=== PATIENT | male | born 1945 | race Caucasian/White ===

== ENCOUNTER 2018-04-19 08:00 | Day surgery (SDC) | payer MEDICARE ==
[~2018-04-19] VITALS: Ht 177.8 cm; Wt 94.4 kg
[~2018-04-19 08:00] MED LIST: ALBU90OI INH; ALBU90OI6 INH; AMLO5 PO; ASPI81CH PO; Aldactazide 251 EACH PO; BUDE6HFA INH; PRED5 PO
--- NOTE | 2018-04-19 11:28 | NUR ---
04/19/18 1128 Luba Wallace UPON ARRIVAL TO SDU, PT DENIED PAIN & NAUSEA. PT THEN STS HAS ABD PAIN, BUT REFUSED MEDICATION. FAMILY AT BEDSIDE, TOLERATING PO INTAKE. PAIN RE-EVALUATED, AND PT STS PAIN IS NOW 8/10. MEDICATED WITH FENTANYL 50MCG IVP PER ORDERS.
== END 2018-04-19 12:13 | disposition home or self-care (01) ==
LOC: ORSCSDS 08:00
PROVIDERS: Surgery
PROC: 0WUF0JZ Supplement Abdominal Wall with Synthetic Substitute, Open Approach (ICD-10-PCS; principal; 2018-04-19 09:15)
DX: K42.9 Umbilical hernia without obstruction or gangrene (principal); I10 Essential (primary) hypertension; J44.9 Chronic obstructive pulmonary disease, unspecified; Z99.81 Dependence on supplemental oxygen; Z87.891 Personal history of nicotine dependence; Z79.899 Other long term (current) drug therapy
CPT/HCPCS: C1781; J0330; J0690; J1720; J2250; J2405; J3010; J7120

== ENCOUNTER → 2018-05-06 | Outpatient (CLI) | payer MEDICARE ==
[~2018-05-06] MED LIST changes: +SIMV40 PO
== END ==
LOC: LAB EV 11:20 → LAB SHORT 11:20
DX: J02.9 Acute pharyngitis, unspecified (principal)
CPT/HCPCS: 87070

== ENCOUNTER 2018-05-09 14:06 | Emergency (ER) | payer MEDICARE ==
[~2018-05-09 14:06] MED LIST changes: -SIMV40 PO
[2018-05-09 14:35] LABS: BASOPHILS ABSOLUTE AUTO 0.03 K/mm3 (0.00-0.23); BASOPHILS PERCENT AUTO 0 % (0-2); EOSINOPHILS ABSOLUTE AUTO 0.03 K/mm3 (0.00-0.68); EOSINOPHILS PERCENT AUTO 0 % (0-6); Hematocrit 35.3 % (37.0-53.0); Hemoglobin 11.8 g/dL (13.5-17.5); IMMATURE GRAN ABSOLUTE AUTO 0.04 K/mm3 (0.00-0.10); IMMATURE GRAN PERCENT AUTO 1 % (0-1); LYMPHOCYTES ABSOLUTE AUTO 0.78 K/mm3 (0.84-5.20); LYMPHOCYTES PERCENT AUTO 10 % (21-46); MONOCYTES ABSOLUTE AUTO 0.73 K/mm3 (0.16-1.47); MONOCYTES PERCENT AUTO 9 % (4-13); Mean Corpuscular HGB 31.2 pg (26.0-34.0); Mean Corpuscular HGB Conc 33.4 g/dL (31.5-36.5); Mean Corpuscular Volume 93 fL (80-100); Mean Platelet Volume 11.8 fL (9.1-12.4); NEUTROPHILS ABSOLUTE AUTO 6.13 K/mm3 (1.96-9.15); NEUTROPHILS PERCENT AUTO 79 % (41-73); Platelet Count 173 K/mm3 (150-400); RDW Coefficient Variation 11.9 % (11.7-14.2); Red Blood Cell Count 3.78 M/mm3 (4.30-5.90); White Blood Cell Count 7.74 K/mm3 (4.00-11.30)
[2018-05-09 14:40] LABS: Calcium, Ionized (POC) 1.03 mmol/L (1.10-1.46); Chloride (POC) 101 mmol/L (98-108); Glucose (ISTAT POC) 107 mg/dL (70-99); Hemoglobin (POC) 11.9 g/dL (13.5-17.5); Potassium (POC) 3.7 mmol/L (3.5-5.5); Sodium (POC) 136 mmol/L (135-148); Total CO2 (POC) 24 mmol/L (21-32)
[2018-05-09 14:56] LABS: International Normalized Ratio 1.09; Prothrombin Time Results 11.5 Sec (9.7-11.5)
[2018-05-09 15:03] LABS: Alanine Aminotransfer (ALT/SGP 42 U/L (12-78); Albumin, Blood 3.4 g/dL (3.4-5.0); Albumin/Globulin Ratio 0.9 (0.8-1.8); Alk Phos 76 U/L (50-136); Anion Gap 8 mmol/L (6-16); Aspartate Aminotrans (AST/SGOT 84 U/L (12-37); Bilirubin, Total 0.5 mg/dL (0.1-1.0); Blood Urea Nitrogen 27 mg/dL (8-24); Bun/Creatinine Ratio 28.6 (12.0-20.0); CO2, Blood 25 mmol/L (21-32); Calcium, Blood 8.7 mg/dL (8.5-10.1); Chloride, Blood 103 mmol/L (98-108); Creatinine, Blood 0.94 mg/dL (0.60-1.20); Globulin, Blood 3.9 g/dL (2.2-4.0); Glomerular Filtration Rate >60 (60-); Glucose, Blood 103 mg/dL (70-99); Potassium, Blood 3.7 mmol/L (3.5-5.5); Sodium, Blood 136 mmol/L (136-145); Total Protein, Blood 7.3 g/dL (6.4-8.2)
[2018-05-09] MEDS ORDERED: SIMV40 PO (15:10)
== END 2018-05-09 14:48 | disposition short-term general hospital (02) ==
LOC: ER 14:06
PROVIDERS: Emergency Medicine
DX: I21.19 ST elevation (STEMI) myocardial infarction involving other coronary artery of inferior wall (principal); J44.9 Chronic obstructive pulmonary disease, unspecified; Z88.1 Allergy status to other antibiotic agents; Z79.899 Other long term (current) drug therapy; Z79.82 Long term (current) use of aspirin; Z79.52 Long term (current) use of systemic steroids; Z87.891 Personal history of nicotine dependence
CPT/HCPCS: 71045; 80047; 80053; 83880; 84484; 85014; 85025; 85610; 86850; 86900; 86901; 93005; 93010; 96374; 96375; 99285-25; J1644; J3010; J7030

== ENCOUNTER 2018-10-16 18:58 | Inpatient (IN) | payer MEDICARE ==
[~2018-10-16] VITALS: Ht 177.8 cm; Wt 80.3 kg
[~2018-10-16 18:58] MED LIST changes: -ALBU90OI INH; +ALBU90OI PO; +CLOP75 PO; +DOCU100 PO; +LISI5 PO; +METO25ER PO; +SIMV40 PO
[2018-10-16 19:51] LABS: BASOPHILS ABSOLUTE AUTO 0.05 K/mm3 (0.00-0.23); BASOPHILS PERCENT AUTO 0 % (0-2); EOSINOPHILS ABSOLUTE AUTO 0.47 K/mm3 (0.00-0.68); EOSINOPHILS PERCENT AUTO 4 % (0-6); Hematocrit 35.9 % (37.0-53.0); Hemoglobin 11.5 g/dL (13.5-17.5); IMMATURE GRAN ABSOLUTE AUTO 0.06 K/mm3 (0.00-0.10); IMMATURE GRAN PERCENT AUTO 1 % (0-1); LYMPHOCYTES ABSOLUTE AUTO 1.04 K/mm3 (0.84-5.20); LYMPHOCYTES PERCENT AUTO 9 % (21-46); MONOCYTES ABSOLUTE AUTO 0.81 K/mm3 (0.16-1.47); MONOCYTES PERCENT AUTO 7 % (4-13); Mean Corpuscular HGB 28.3 pg (26.0-34.0); Mean Corpuscular Volume 88 fL (80-100); Mean Platelet Volume 10.7 fL (9.1-12.4); NEUTROPHILS ABSOLUTE AUTO 9.46 K/mm3 (1.96-9.15); NEUTROPHILS PERCENT AUTO 80 % (41-73); Platelet Count 249 K/mm3 (150-400); RDW Coefficient Variation 14.8 % (11.7-14.2); RDW Standard Deviation 47.8 fL (35.1-46.3); Red Blood Cell Count 4.07 M/mm3 (4.30-5.90); White Blood Cell Count 11.89 K/mm3 (4.00-11.30)
[2018-10-16 20:17] LABS: Alanine Aminotransfer (ALT/SGP 22 U/L (12-78); Albumin, Blood 3.6 g/dL (3.4-5.0); Alk Phos 109 U/L (50-136); Anion Gap 3 mmol/L (6-16); Aspartate Aminotrans (AST/SGOT 17 U/L (12-37); Bilirubin, Total 0.4 mg/dL (0.1-1.0); Blood Urea Nitrogen 25 mg/dL (8-24); Bun/Creatinine Ratio 24.8 (12.0-20.0); CO2, Blood 26 mmol/L (21-32); Calcium, Blood 9.6 mg/dL (8.5-10.1); Chloride, Blood 104 mmol/L (98-108); Creatinine, Blood 1.01 mg/dL (0.60-1.20); Globulin, Blood 3.6 g/dL (2.2-4.0); Glomerular Filtration Rate >60 (60-); Glucose, Blood 98 mg/dL (70-99); Potassium, Blood 3.9 mmol/L (3.5-5.5); Sodium, Blood 133 mmol/L (136-145); Total Protein, Blood 7.2 g/dL (6.4-8.2)
[2018-10-16] MEDS ORDERED: ATOR10 PO (20:55)
[2018-10-16] MEDS ORDERED: LISI5 PO (20:55)
[2018-10-16] MEDS ORDERED: METO50 PO (20:55)
[2018-10-16] MEDS ORDERED: BUDE6HFA INH (20:56)
[2018-10-16] MEDS ORDERED: Aldactazide 251 EACH PO (20:56)
[2018-10-16] MEDS ORDERED: ASPI325EC PO (20:56)
[2018-10-16] MEDS ORDERED: CLOP75 PO (20:56)
[2018-10-16 22:03] LABS: Source, Urine Clean Catch
[2018-10-16 22:06] LABS: Bilirubin, Urine Neg (Neg); Blood, Urine Neg (Neg); Glucose Qualitative, Urine Neg (Neg); Ketones, Urine 2+ (Neg); Leukocyte Esterase, Urine Neg (Neg); Nitrite, Urine Neg (Neg); Protein, Urine Neg (Neg); Urobilinogen, Urine NORM (Normal)
[2018-10-16 22:07] LABS: Appearance, Urine Clear (Clear); Color, Urine Yellow (P-Yellow)
--- NOTE | 2018-10-17 03:44 | NUR ---
SHIFT SUMMARY: PT IS ALERT AND ORIENTED. PT IS CALM AND COOPERATIVE WITH CARE. PT CALLS APPROPRIATELY. PT IS A STANDBY ASSIST. PT REPORTS RLQ ABD PAIN, MEDICATING PER EMAR. PT DENIES NAUSEA, VOMITING, AND SOB. FLUIDS RUNNING ORDERED. NSR ON TELE. PT SLEPT INTERMITTENTLY THROUGHOUT THE MORNING AFTER ADMISSION. NPO ORDERED. NO ACUTE CHANGES SINCE ADMISSION. BED IN LOW POSITION, CALL LIGHT WITHIN REACH. WILL REPORT TO DAY NURSE.
[2018-10-17 04:50] LABS: BASOPHILS ABSOLUTE AUTO 0.02 K/mm3 (0.00-0.23); BASOPHILS PERCENT AUTO 0 % (0-2); EOSINOPHILS ABSOLUTE AUTO 0.09 K/mm3 (0.00-0.68); EOSINOPHILS PERCENT AUTO 1 % (0-6); Hematocrit 31.5 % (37.0-53.0); IMMATURE GRAN ABSOLUTE AUTO 0.04 K/mm3 (0.00-0.10); IMMATURE GRAN PERCENT AUTO 0 % (0-1); LYMPHOCYTES ABSOLUTE AUTO 0.79 K/mm3 (0.84-5.20); LYMPHOCYTES PERCENT AUTO 8 % (21-46); MONOCYTES ABSOLUTE AUTO 0.73 K/mm3 (0.16-1.47); MONOCYTES PERCENT AUTO 8 % (4-13); Mean Corpuscular HGB 27.5 pg (26.0-34.0); Mean Corpuscular HGB Conc 31.7 g/dL (31.5-36.5); Mean Corpuscular Volume 87 fL (80-100); Mean Platelet Volume 10.6 fL (9.1-12.4); NEUTROPHILS ABSOLUTE AUTO 7.73 K/mm3 (1.96-9.15); NEUTROPHILS PERCENT AUTO 82 % (41-73); Platelet Count 204 K/mm3 (150-400); RDW Coefficient Variation 14.7 % (11.7-14.2); Red Blood Cell Count 3.63 M/mm3 (4.30-5.90)
[2018-10-17 05:16] LABS: Anion Gap 6 mmol/L (6-16); Blood Urea Nitrogen 19 mg/dL (8-24); Bun/Creatinine Ratio 19.3 (12.0-20.0); CO2, Blood 26 mmol/L (21-32); Calcium, Blood 8.2 mg/dL (8.5-10.1); Chloride, Blood 106 mmol/L (98-108); Creatinine, Blood 0.99 mg/dL (0.60-1.20); Glomerular Filtration Rate >60 (60-); Glucose, Blood 99 mg/dL (70-99); Potassium, Blood 4.3 mmol/L (3.5-5.5); Sodium, Blood 138 mmol/L (136-145)
[2018-10-17 12:44] LABS: Albumin, Blood 2.8 g/dL (3.4-5.0); Albumin/Globulin Ratio 0.9 (0.8-1.8); Bilirubin, Direct 0.2 mg/dL (0.0-0.3); Bilirubin, Indirect 0.6 mg/dL (0.1-0.7); Bilirubin, Total 0.8 mg/dL (0.1-1.0); Globulin, Blood 3.2 g/dL (2.2-4.0); Phosphorus, Blood 2.6 mg/dL (2.5-4.9)
[2018-10-17 17:07] LABS: PCO2 Arterial 33.9 mmHg (35-45); pH Blood Arterial 7.43 (7.35-7.45)
--- NOTE | 2018-10-17 18:05 | NUR ---
SHIFT SUMMARY THIS RN HAS MEDICATED FOR RIGHT LOWER QUADRANT ABDOMINAL PAIN SEVERAL TIMES THIS SHIFT. DR. AGUILAR AND CATALINA IN TO SEE PT THIS SHIFT. PT NPO WITH IVF INFUSING PER ORDERS. PT SLEEPING A LOT OF THE SHIFT. NO PLANS FOR PROCEDURE/SURGERY AT THIS TIME. NO ACUTE CHANGES THIS SHIFT. CALL LIGHT IN REACH. WILL CONTINUE TO MONITOR AND REPORT TO ONCOMING RN.
[2018-10-18 04:36] LABS: BASOPHILS ABSOLUTE AUTO 0.02 K/mm3 (0.00-0.23); BASOPHILS PERCENT AUTO 0 % (0-2); EOSINOPHILS ABSOLUTE AUTO 0.11 K/mm3 (0.00-0.68); EOSINOPHILS PERCENT AUTO 1 % (0-6); Hematocrit 29.7 % (37.0-53.0); Hemoglobin 9.6 g/dL (13.5-17.5); IMMATURE GRAN ABSOLUTE AUTO 0.05 K/mm3 (0.00-0.10); IMMATURE GRAN PERCENT AUTO 1 % (0-1); LYMPHOCYTES ABSOLUTE AUTO 0.83 K/mm3 (0.84-5.20); LYMPHOCYTES PERCENT AUTO 10 % (21-46); MONOCYTES ABSOLUTE AUTO 0.58 K/mm3 (0.16-1.47); MONOCYTES PERCENT AUTO 7 % (4-13); Mean Corpuscular HGB 27.6 pg (26.0-34.0); Mean Corpuscular HGB Conc 32.3 g/dL (31.5-36.5); Mean Corpuscular Volume 85 fL (80-100); Mean Platelet Volume 11.2 fL (9.1-12.4); NEUTROPHILS ABSOLUTE AUTO 6.54 K/mm3 (1.96-9.15); NEUTROPHILS PERCENT AUTO 81 % (41-73); Platelet Count 185 K/mm3 (150-400); RDW Coefficient Variation 14.7 % (11.7-14.2); RDW Standard Deviation 45.6 fL (35.1-46.3); Red Blood Cell Count 3.48 M/mm3 (4.30-5.90); White Blood Cell Count 8.13 K/mm3 (4.00-11.30)
[2018-10-18 04:54] LABS: Alanine Aminotransfer (ALT/SGP 15 U/L (12-78); Albumin, Blood 2.7 g/dL (3.4-5.0); Albumin/Globulin Ratio 0.8 (0.8-1.8); Alk Phos 73 U/L (50-136); Anion Gap 6 mmol/L (6-16); Aspartate Aminotrans (AST/SGOT 5 U/L (12-37); Bilirubin, Total 0.8 mg/dL (0.1-1.0); Blood Urea Nitrogen 14 mg/dL (8-24); Bun/Creatinine Ratio 14.3 (12.0-20.0); CO2, Blood 26 mmol/L (21-32); Calcium, Blood 8.2 mg/dL (8.5-10.1); Chloride, Blood 106 mmol/L (98-108); Creatinine, Blood 0.98 mg/dL (0.60-1.20); Globulin, Blood 3.2 g/dL (2.2-4.0); Glomerular Filtration Rate >60 (60-); Glucose, Blood 105 mg/dL (70-99); Potassium, Blood 3.7 mmol/L (3.5-5.5); Sodium, Blood 138 mmol/L (136-145); Total Protein, Blood 5.9 g/dL (6.4-8.2)
--- NOTE | 2018-10-18 05:07 | NUR ---
SHIFT SUMMARY: PT IS ALERT AND ORIENTED. PT IS CALM AND COOPERATIVE WITH CARE. PT CALLS APPROPRIATELY. PT IS A STANDBY ASSIST, USING THE URINAL INDEPENDENTLY IN BED. PT COTINUES TO BE NPO, FLUIDS RUNNING ORDERED. PT DOES NOT REPORT ANY PAIN THIS SHIFT, DENIES NAUSEA, VOMITING, AND SOB. PT SLEPT MUCH OF THE NIGHT. GI AND SURGERY CONSULTED. NO ACUTE CHANGES OR COMPLICATIONS. BED IN LOW POSITION, CALL LIGHT WITHIN REACH. WILL REPORT TO DAY NURSE.
--- NOTE | 2018-10-18 17:21 | NUR ---
10/18/18 1721 Wilton Arango PT ON SCHEDULED ZOSYN IV AND WILL CON'T TO RECIEVE SCHEDULED
[2018-10-19 04:02] LABS: BASOPHILS ABSOLUTE AUTO 0.01 K/mm3 (0.00-0.23); BASOPHILS PERCENT AUTO 0 % (0-2); EOSINOPHILS PERCENT AUTO 0 % (0-6); Hematocrit 27.9 % (37.0-53.0); Hemoglobin 8.8 g/dL (13.5-17.5); IMMATURE GRAN ABSOLUTE AUTO 0.06 K/mm3 (0.00-0.10); IMMATURE GRAN PERCENT AUTO 1 % (0-1); LYMPHOCYTES ABSOLUTE AUTO 0.28 K/mm3 (0.84-5.20); LYMPHOCYTES PERCENT AUTO 3 % (21-46); MONOCYTES ABSOLUTE AUTO 0.29 K/mm3 (0.16-1.47); MONOCYTES PERCENT AUTO 3 % (4-13); Mean Corpuscular HGB 27.5 pg (26.0-34.0); Mean Corpuscular HGB Conc 31.5 g/dL (31.5-36.5); Mean Corpuscular Volume 87 fL (80-100); NEUTROPHILS ABSOLUTE AUTO 8.14 K/mm3 (1.96-9.15); NEUTROPHILS PERCENT AUTO 93 % (41-73); Platelet Count 191 K/mm3 (150-400); RDW Coefficient Variation 14.7 % (11.7-14.2); RDW Standard Deviation 47.1 fL (35.1-46.3); White Blood Cell Count 8.78 K/mm3 (4.00-11.30)
[2018-10-19 04:26] LABS: Percent Saturation 5.1 % (20.0-50.0)
[2018-10-19 04:27] LABS: Alanine Aminotransfer (ALT/SGP 13 U/L (12-78); Albumin, Blood 2.4 g/dL (3.4-5.0); Albumin/Globulin Ratio 0.7 (0.8-1.8); Alk Phos 66 U/L (50-136); Anion Gap 10 mmol/L (6-16); Aspartate Aminotrans (AST/SGOT 13 U/L (12-37); Bilirubin, Total 0.5 mg/dL (0.1-1.0); Blood Urea Nitrogen 16 mg/dL (8-24); Bun/Creatinine Ratio 15.7 (12.0-20.0); CO2, Blood 22 mmol/L (21-32); Calcium, Blood 8.2 mg/dL (8.5-10.1); Chloride, Blood 106 mmol/L (98-108); Creatinine, Blood 1.02 mg/dL (0.60-1.20); Globulin, Blood 3.5 g/dL (2.2-4.0); Glomerular Filtration Rate >60 (60-); Glucose, Blood 132 mg/dL (70-99); Phosphorus, Blood 3.8 mg/dL (2.5-4.9); Potassium, Blood 4.6 mmol/L (3.5-5.5); Sodium, Blood 138 mmol/L (136-145); Total Protein, Blood 5.9 g/dL (6.4-8.2)
--- NOTE | 2018-10-19 06:11 | NUR ---
SHIFT SUMMARY PT ARRIVED TO UNIT FROM PACU D/T LOW O2 SATS POST OP. PT A0X4 UPON ARRIVAL. REPORTS PAIN TO ABD. PREVINA DRESSING TO INCISION. C/D/I. RESP EVEN UNLABORED ON 4L UPON ARRIVAL, PT HAS SINCE BEEN TITRATED DOWN TO HOME 2L AT [facility]. SATS >95% TOLERATING WELL. PT HAS BEEN MEDICATED T/O NIGHT FOR PAIN TO ABD, PT SSIST IN TURN TO R SIDE TO REDUCE PRESSURE TO BACK, PT TOLERATED WELL. DENIES CP, BP HAS BEEN LOW AND NITRO PASTE WAS HELD D/T CLINICAL JUDGMENT AT THE TIME. DENIES OTHER NEEDS. CALL LIGHT IN REACH.
--- NOTE | 2018-10-19 14:29 | NUR ---
REPORTS GIVEN TO ALEX CALLAWAY ASSUMING CARE OF PT. PT TRANSFERED TO ROOM 224. PT A&Ox4, CALM AND COOPERATIVE WITH CARE. FORGETFUL AT TIMES. PT RESTING IN BED DURING SHIFT. PT REPORTS RLQ PAIN, MEDICATED x1 WITH TORADOL WITH POSITIVE RESULTS. PT ON 2L O2 VIA NC THIS AM, TITRATED SPO2 >94% ON RA. PT WEARS 2L O2 VIA NC AT BASELINE AT NIGHT. JONES IN PLACE, PATENT AND DRAINING, REMOVED PER ORDERS. PT HAS PREVENA WOUND DRESSING OVER SURGICAL SIGHT, DRESSING C/D/I, SANGINOUS DRAINING IN TUBING. VSS. NO OTHER ACUTE CHANGES NOTED.
--- NOTE | 2018-10-19 16:18 | NUR ---
TRANSFER TO SURGICAL FLOOR PATIENT TO SURGICAL FLOOR FROM PCU AT 1430 TODAY. PT IS A&O X4, VSS, ON RA , ABLE TO AMBULATE WITH WALKER AND STAND BY, LCA, HR REGULAR BUT DISTANT SOUNDING, BTX4, REPORTS PASSING GAS AND BELCHING. PREVENA TO WOUND DEPRESSED, SS DRAINAGE NOTED IN TUBING. REPORTS PAIN 2/10 STATING TOLERABLE LEVEL AT THIS TIME.
--- NOTE | 2018-10-19 16:27 | NUR ---
DR. CRUZ IN TO SEE PT NO NEW ORDERS AT THIS.
--- NOTE | 2018-10-19 17:35 | NUR ---
PAIN CONTROL PT RATED PAIN AT 4/10 AFTER 1 PAIN PILL; WHICH IS NOT IMPROVING HIS PAIN. HOWEVER, HE DECLINED ANY FURTHER PAIN MANAGEMENT TREATMENTS OR MEDICATIONS AT THIS TIME.
--- NOTE | 2018-10-19 19:17 | NUR ---
SHIFT SUMMARY PT TO UNIT FROM PCU THIS AFTERNOON. IS STABLE, AMBULATES WITH 1 PERSON STAND BY ASSIT, A&O. PT REPORTS PAIN TOLERABLE AT THIS TIME RATING 5/10. HAS NOT VOIDED SINCE ARRIVAL TO UNIT, PERFORMED BLADDER SCAN WHICH SHOWED 9MLS OF URINE. PT RESTING IN BED WITH CALL LIGHT WITHIN REACH.
--- NOTE | 2018-10-20 00:48 | NUR ---
PT WITH EMESIS AND VERB ZOFRAN INEFFECTIVE FOR NAUSEA. PT ALSO WITH BLADDER SCAN OF 412 ML AND INABILITY TO VOID.CALL OUT TO DR GONZALES.WAITING RETURN CALL.
[2018-10-20 05:08] LABS: BASOPHILS ABSOLUTE AUTO 0.02 K/mm3 (0.00-0.23); BASOPHILS PERCENT AUTO 0 % (0-2); EOSINOPHILS ABSOLUTE AUTO 0.01 K/mm3 (0.00-0.68); EOSINOPHILS PERCENT AUTO 0 % (0-6); Hematocrit 27.9 % (37.0-53.0); Hemoglobin 9.2 g/dL (13.5-17.5); IMMATURE GRAN ABSOLUTE AUTO 0.05 K/mm3 (0.00-0.10); IMMATURE GRAN PERCENT AUTO 1 % (0-1); LYMPHOCYTES ABSOLUTE AUTO 0.75 K/mm3 (0.84-5.20); LYMPHOCYTES PERCENT AUTO 7 % (21-46); MONOCYTES ABSOLUTE AUTO 0.81 K/mm3 (0.16-1.47); MONOCYTES PERCENT AUTO 8 % (4-13); Mean Corpuscular HGB 28.2 pg (26.0-34.0); Mean Corpuscular Volume 86 fL (80-100); NEUTROPHILS ABSOLUTE AUTO 8.49 K/mm3 (1.96-9.15); NEUTROPHILS PERCENT AUTO 84 % (41-73); Platelet Count 281 K/mm3 (150-400); RDW Coefficient Variation 14.6 % (11.7-14.2); RDW Standard Deviation 46.5 fL (35.1-46.3); Red Blood Cell Count 3.26 M/mm3 (4.30-5.90); White Blood Cell Count 10.13 K/mm3 (4.00-11.30)
[2018-10-20 05:27] LABS: Alanine Aminotransfer (ALT/SGP 18 U/L (12-78); Albumin, Blood 2.6 g/dL (3.4-5.0); Albumin/Globulin Ratio 0.7 (0.8-1.8); Alk Phos 64 U/L (50-136); Anion Gap 7 mmol/L (6-16); Aspartate Aminotrans (AST/SGOT 12 U/L (12-37); Bilirubin, Total 0.4 mg/dL (0.1-1.0); Blood Urea Nitrogen 17 mg/dL (8-24); Bun/Creatinine Ratio 18.6 (12.0-20.0); CO2, Blood 28 mmol/L (21-32); Calcium, Blood 8.5 mg/dL (8.5-10.1); Chloride, Blood 103 mmol/L (98-108); Creatinine, Blood 0.91 mg/dL (0.60-1.20); Globulin, Blood 3.6 g/dL (2.2-4.0); Glomerular Filtration Rate >60 (60-); Glucose, Blood 112 mg/dL (70-99); Potassium, Blood 3.6 mmol/L (3.5-5.5); Sodium, Blood 138 mmol/L (136-145); Total Protein, Blood 6.2 g/dL (6.4-8.2)
--- NOTE | 2018-10-20 17:57 | NUR ---
SUMMARY: PT IS POD2 ILEOCOLIC ANESTOMOSIS. NO ACUTE CHANGE TODAY. PT IS A/O, VSS. SURGICAL SITE WNL, SMALL AMT RED DRAINAGE FROM PRAVENA. PT CONTINUED TO HAVE INTERMITTANT NAUSEA TODAY, 600 EMESIS. DENIED NEED FOR NAUSEA MED. PT UP TO VOID X2, ENCOURAGING MOBILITY ALTHOUGH PT HAS SLEPT MOST OF THE DAY. PT IS VOIDING, BLADDER SCANS WNL. WILL CTM AND REPORT TO NOC RN
--- NOTE | 2018-10-21 04:36 | NUR ---
SUMMARY PT REPORTS NAUSEA RESOLVED.TOLERATING SMALL AMNTS LIQ.NO FLATUS TONIGHT. VOIDING WITHOUT DIFF THIS SHIFT.
--- NOTE | 2018-10-21 17:20 | NUR ---
SHIFT SUMMARY NO ACUTE CHANGES THIS SHIFT. VSS. PT REPORTS HE IS FEELING A LOT BETTER THAN HE WAS THIS MORNING AFTER HE HAD X1 EMESIS. ABD IS STILL SEVERELY DISTENDED BUT SOFT TO THE TOUCH. HYPOACTIVE BTS X4 QUAD. PT REPORTS PASSING GAS T/O THE DAY. HE REPORTS MORE GAS THAN HE WAS THIS MORNING. DENIES N/V AND IS DEBBIE FULL LIQ DIET. PT IS INDEPENDENTLY AMBULATING HALLWAY AND HAS BEEN UP IN HIS CHAIR FOR MOST OF THE DAY. USING URINAL TO VOID. PT USES CALL LIGHT APPROPRIATELY.
--- NOTE | 2018-10-22 07:18 | NUR ---
SUMMARY: POD 4 SBO F/U BY DR. ARNOLD. VSS, AFEBRILE. PT HAD 2 LOOSE OMARI RED STOOLS AND PASSING GAS THIS SHIFT; VOIDING CLEAR FERCHO URINE. 1 GREEN EMESIS OF 350 ML EARLY IN SHIFT RELEIVED WITH IV REGLAN AND 12.5 MG IV PHENERGAN. PT HAS HICCUPS ENTIRETY OF SHIFT WHILE IN BED THAT APPEARED RELEIVED WHILE OUT OF BED. ONLY PO INTAKE WAS ICE CHIPS. ABD APPEARS SEVERLY DISTENDED AROUND TO FLANKS WITH HYPOACTIVE BOWEL TONES. ENCOURAGE OOB ACTIVITY TODAY.
[2018-10-22 11:31] LABS: Adenovirus F 40/41 Not Detected (NOT DETECT); Astrovirus Not Detected (NOT DETECT); Campylobacter Sp Not Detected (NOT DETECT); Cryptosporidium Not Detected (NOT DETECT); Cyclospora Cayetanensis Not Detected (NOT DETECT); E. Coli O157 Not Detected (NOT DETECT); Entamoeba Histolytica Not Detected (NOT DETECT); Enteroaggregative E. coli-EAEC Not Detected (NOT DETECT); Enteropathogenic E. coli-EPEC Not Detected (NOT DETECT); Enterotoxigenic E. coli-ETEC Not Detected (NOT DETECT); Giardia Lamblia Not Detected (NOT DETECT); Norovirus GI/GII Not Detected (NOT DETECT); Plesiomonas Shigelloides Not Detected (NOT DETECT); Rotavirus A Not Detected (NOT DETECT); Salmonella Sp Not Detected (NOT DETECT); Sapovirus Not Detected (NOT DETECT); Shiga Toxin-prod E. coli-STEC Not Detected (NOT DETECT); Shigella/Enteroin E. coli-EIEC Not Detected (NOT DETECT); Vibrio Cholerae Not Detected (NOT DETECT); Vibrio Sp Not Detected (NOT DETECT); Yersinia Enterocolitica Not Detected (NOT DETECT)
--- NOTE | 2018-10-22 14:44 | NUR ---
DR. Romulo ZALDIVAR NOTIFIED OF LIQUID MAROON COLORED STOOLS. NEW ORDER FOR [facility] LABS PLACED AT THIS TIME.
[2018-10-22 15:16] LABS: BASOPHILS ABSOLUTE AUTO 0.03 K/mm3 (0.00-0.23); BASOPHILS PERCENT AUTO 0 % (0-2); EOSINOPHILS ABSOLUTE AUTO 0.02 K/mm3 (0.00-0.68); EOSINOPHILS PERCENT AUTO 0 % (0-6); Hematocrit 27.2 % (37.0-53.0); Hemoglobin 8.9 g/dL (13.5-17.5); IMMATURE GRAN ABSOLUTE AUTO 0.09 K/mm3 (0.00-0.10); IMMATURE GRAN PERCENT AUTO 1 % (0-1); LYMPHOCYTES ABSOLUTE AUTO 0.47 K/mm3 (0.84-5.20); LYMPHOCYTES PERCENT AUTO 3 % (21-46); MONOCYTES ABSOLUTE AUTO 1.02 K/mm3 (0.16-1.47); MONOCYTES PERCENT AUTO 7 % (4-13); Mean Corpuscular HGB 28.6 pg (26.0-34.0); Mean Corpuscular HGB Conc 32.7 g/dL (31.5-36.5); Mean Corpuscular Volume 88 fL (80-100); Mean Platelet Volume 10.5 fL (9.1-12.4); NEUTROPHILS ABSOLUTE AUTO 13.64 K/mm3 (1.96-9.15); NEUTROPHILS PERCENT AUTO 89 % (41-73); Platelet Count 285 K/mm3 (150-400); RDW Coefficient Variation 14.6 % (11.7-14.2); RDW Standard Deviation 47.1 fL (35.1-46.3); Red Blood Cell Count 3.11 M/mm3 (4.30-5.90); White Blood Cell Count 15.27 K/mm3 (4.00-11.30)
--- NOTE | 2018-10-22 16:33 | NUR ---
SHIFT SUMMARY PT ABDOMEN CONT TO BE DISTENDED BUT IS SOFT TO THE TOUCH AND NONTENDER. PT REPORTS PASSING MINIMAL FLATUS BUT HAS HAD X2 LIQ MAROON STOOLS IN WHICH DR. ZALDIVAR AND DR. ARNOLD ARE AWARE OF. PT HAD X1 EMESIS THIS MORNING AND DIET REGRESSED TO CLEAR LIQS. PREVENA WOUND VAC IN PLACE AND DRESSING CDI. PT UP IN CHAIR AND AMBULATING HALLWAY INDEPENDENTLY. NEW ORDER FOR CLINIMIX IN PLACE AND WILL BE STARTED PER ORDERS. VSS. PT USES CALL LIGHT APPROPRIATELY.
[2018-10-23 03:36] LABS: BASOPHILS ABSOLUTE AUTO 0.04 K/mm3 (0.00-0.23); BASOPHILS PERCENT AUTO 0 % (0-2); EOSINOPHILS ABSOLUTE AUTO 0.17 K/mm3 (0.00-0.68); EOSINOPHILS PERCENT AUTO 1 % (0-6); Hematocrit 24.6 % (37.0-53.0); Hemoglobin 7.8 g/dL (13.5-17.5); IMMATURE GRAN ABSOLUTE AUTO 0.11 K/mm3 (0.00-0.10); IMMATURE GRAN PERCENT AUTO 1 % (0-1); LYMPHOCYTES ABSOLUTE AUTO 0.57 K/mm3 (0.84-5.20); LYMPHOCYTES PERCENT AUTO 4 % (21-46); MONOCYTES ABSOLUTE AUTO 0.99 K/mm3 (0.16-1.47); MONOCYTES PERCENT AUTO 8 % (4-13); Mean Corpuscular HGB 27.5 pg (26.0-34.0); Mean Corpuscular HGB Conc 31.7 g/dL (31.5-36.5); Mean Corpuscular Volume 87 fL (80-100); NEUTROPHILS ABSOLUTE AUTO 11.03 K/mm3 (1.96-9.15); NEUTROPHILS PERCENT AUTO 85 % (41-73); Platelet Count 232 K/mm3 (150-400); RDW Coefficient Variation 14.6 % (11.7-14.2); RDW Standard Deviation 46.2 fL (35.1-46.3); Red Blood Cell Count 2.84 M/mm3 (4.30-5.90); White Blood Cell Count 12.91 K/mm3 (4.00-11.30)
[2018-10-23 03:53] LABS: Anion Gap 8 mmol/L (6-16); Blood Urea Nitrogen 41 mg/dL (8-24); Bun/Creatinine Ratio 43.2 (12.0-20.0); CO2, Blood 25 mmol/L (21-32); Calcium, Blood 8.3 mg/dL (8.5-10.1); Chloride, Blood 107 mmol/L (98-108); Creatinine, Blood 0.95 mg/dL (0.60-1.20); Glomerular Filtration Rate >60 (60-); Glucose, Blood 137 mg/dL (70-99); Potassium, Blood 3.5 mmol/L (3.5-5.5); Sodium, Blood 140 mmol/L (136-145)
--- NOTE | 2018-10-23 09:35 | NUR ---
DR. ZALDIVAR NOTIFIED OF DECREASED H&H OF 7.8 AND 24.6. ORDER FOR 1 UNIT OF PRBC. ALSO NOTIFIED PT ON ASPIRIN, PLAVIX, AND LOVENOX; HELD PLAVIX, DC'D LOVENOX AND CHANGED ASPIRIN ORDER PER DR. ZALDIVAR. PT ASYMPTOMATIC OF LOW H&H. WILL CONTINUE TO MONITOR.
--- NOTE | 2018-10-23 11:45 | NUR ---
1 UNIT PRBC INFUSING STARTING AT 1130. 15 MINUTE CHECK VSS. TEMP ELEVATED. PT REPORTS NO ITCHING, NO SIGNS OF ADVERSE REACTION SEEN. PT SITTING UP IN BED. WILL CONTINUE TO MONITOR.
--- NOTE | 2018-10-23 14:59 | NUR ---
1 UNIT PRBC DONE INFUSING. LUNG SOUNDS CLEAR. PT UP IN BED. NO COMPLAINTS AT THIS TIME. NO ITCHING REPORTED. NO REDNESS SEEN.
--- NOTE | 2018-10-23 17:34 | NUR ---
SHIFT SUMMARY POD 5 EX LAP WITH ILEOCECOSTOMY AND ILEOCOLIC ANASTOMOSIS. PT ALERT AND ORIENTED WITH NO COMPLAINTS OF PAIN. PT WITH LOW GRADE FEVER DURING SHIFT MEDICATED WITH TORODOL AND TYLENOL FOR FEVER. HGB OF 7.8 THIS AM. I UNIT PRBC INFUSED PER DR. ZALDIVAR. LUNG SOUNDS CLEAR DURING INFUSION, NO SIGNS OF ALLERGIC REACTION. PT UP TO BATHROOM WITH 1 ASSIST DURING SHIFT. ONE LOOSE BM DURING SHIFT. CLINIMIX INFUSING 75ML/HR.
--- NOTE | 2018-10-23 19:02 | NUR ---
PT HAD 500ML EMESIS OUT. PHENERGAN GIVEN FOR NAUSEA AND VOMITING. WILL CONTINUE TO MONITOR. REPORT GIVEN TO ONCOMING SHIFT.
--- NOTE | 2018-10-23 20:30 | NUR ---
GIVEN REGLAN 10MG IV PER MD ORDERS FOR N/V. WILL CONTINUE TO MONITOR.
--- NOTE | 2018-10-23 22:00 | NUR ---
ASSITED TO BATHROOM AND BACK. 400ML THICKENED LIQUID BROWN BM NOTED IN SPECIMEN [place]. 80ML SPECIMEN SENT TO LAB FOR TESTING PER MD ORDERS. 25MCG SENT GIVEN FOR REPORT RKQ PAIN OF 8/10. SAFETY MEASURES IN PLACE. WILL CONTINUE TO MONITOR.
--- NOTE | 2018-10-23 23:30 | NUR ---
MEDICATED WITH NORCO 5MG X2 TABS GIVEN FOR C/O PAIN 09/21. STATES PREVIOUS PAIN MED DID NOT RELIEVE PAIN. WILL CONTINUE TO MONITOR.
--- NOTE | 2018-10-24 00:15 | NUR ---
C/O ABD CRAMPING, ASSISTED TO COMMODE IN BATHROOM. CONTINUES TO HAVE RED TINGED LIQUID BROWN STOOL IN SPECIMEN [place].
--- NOTE | 2018-10-24 00:30 | NUR ---
C/O PAIN OF 10/22 TO RLQ, STATES THAT IT WAS NOT RELEIVED WITH PREVIOUS DOSES OF PAIN MEDS. 50MCG FENT GIVEN IVP, WILL CONTINUE TO MONITOR.
[2018-10-24 03:50] LABS: Stool Occult Bld Immuno 1 Positive (NEGATIVE)
[2018-10-24 05:02] LABS: Hematocrit 30.1 % (37.0-53.0); Hemoglobin 9.7 g/dL (13.5-17.5); Mean Corpuscular HGB 28.1 pg (26.0-34.0); Mean Corpuscular HGB Conc 32.2 g/dL (31.5-36.5); Mean Corpuscular Volume 87 fL (80-100); Mean Platelet Volume 11.6 fL (9.1-12.4); Platelet Count 348 K/mm3 (150-400); RDW Coefficient Variation 15.1 % (11.7-14.2); RDW Standard Deviation 48.1 fL (35.1-46.3); Red Blood Cell Count 3.45 M/mm3 (4.30-5.90); White Blood Cell Count 11.42 K/mm3 (4.00-11.30)
[2018-10-24 06:06] LABS: Albumin, Blood 2.6 g/dL (3.4-5.0); Anion Gap 13 mmol/L (6-16); Blood Urea Nitrogen 52 mg/dL (8-24); Bun/Creatinine Ratio 43.7 (12.0-20.0); CO2, Blood 22 mmol/L (21-32); Calcium, Blood 8.4 mg/dL (8.5-10.1); Chloride, Blood 103 mmol/L (98-108); Creatinine, Blood 1.19 mg/dL (0.60-1.20); Glomerular Filtration Rate >60 (60-); Glucose, Blood 176 mg/dL (70-99); Phosphorus, Blood 4.5 mg/dL (2.5-4.9); Potassium, Blood 3.5 mmol/L (3.5-5.5); Sodium, Blood 138 mmol/L (136-145)
--- NOTE | 2018-10-24 06:30 | NUR ---
SHIFT SUMMARY LYING IN SEMI FOWERS WITH EYES CLOSED. CONTINUES TO HAVE GI BLEEDING EVIDENCED IN STOOLS, HAS HAD BM X3 THIS SHIFT. EACH PROGRESSIVELY MORE LIQUID AND BLOODY. H&H HAS REMAINED STABLE PER LABS THIS AM AND PT IS ASYMPOMATIC AT THIS TIME. PAIN IS NOW MANAAGED, BUT WAS DIFFICULT WHEN BM'S WERE OCCURING. ABD DISTENTION HAS RESOLVED. DENIES PAIN, DISCOMFORT, OR FURTHER NEEDS AT THIS TIME. WILL GIVE HAND OFF TO ONCOMING SHIFT USING SBAR.
--- NOTE | 2018-10-24 08:38 | NUR ---
UPON MORINING ASSESSMENT PT APPEARS PALE AND DROWSY. HE AWAKENS TO ANSWER QUESTIONS AND RESPONDS APPROPRIATELY, PT IS ORIENTED. HE REPORTS FEELING SHORT OF BREATH, LUNG SOUNDS DIM T/O. PT'S ABD IS DISTENDED AND HE HAS HAD NAUSEA AND VOMITING. EMESIS IS GREEN. L ARM REMAINS SWOLLEN WITHOUT IMPROVEMENT FROM YESTERDAY. BP LOW WITH INCREASING HR. DR. ZALDIVAR NOTIFIED OF CHANGES IN PATIENTS CONDITION. AWAITING DR. ZALDIVAR TO SEE THE PATIENT. WILL CONTINUE TO MONITOR AND REPORT CHANGES.
--- NOTE | 2018-10-24 09:51 | NUR ---
NG TUBE 14FR NG TUBE PLACED. PT TOLERATED WELL. NO IMMEDIATE RETURN. PLACEMENT CHECKED, COULD HEAR AIR IN STOMACH WHEN TUBE WAS FLUSHED WITH AIR. WILL GET XRAY TO CONFIRM PLACEMENT.
[2018-10-24 10:04] LABS: Mean Corpuscular HGB 28.2 pg (26.0-34.0); Mean Corpuscular HGB Conc 32.1 g/dL (31.5-36.5); Mean Corpuscular Volume 88 fL (80-100); Mean Platelet Volume 11.6 fL (9.1-12.4); Platelet Count 302 K/mm3 (150-400); RDW Coefficient Variation 14.8 % (11.7-14.2); RDW Standard Deviation 47.9 fL (35.1-46.3); Red Blood Cell Count 3.19 M/mm3 (4.30-5.90)
--- NOTE | 2018-10-24 10:25 | NUR ---
PT'S NOTIFIED OF CHANGE IN THE PATIENTS CONDITION. WILL CONTINUE TO MONITOR AND UPDATE NEEDED.
[2018-10-24 10:26] LABS: BAND PERCENT MAN 18 % (0-8); BASOPHILS PERCENT MAN 0 % (0-2); EOSINOPHILS ABSOLUTE MAN 0.22 K/mm3 (0.00-0.68); EOSINOPHILS PERCENT MAN 2 % (0-6); LYMPHOCYTES % ATYPICAL MANUAL 1 % (0-0); LYMPHOCYTES ABSOLUTE MAN 0.45 K/mm3 (0.84-5.20); LYMPHOCYTES PERCENT MAN 3 % (21-46); MONOCYTES ABSOLUTE MAN 1.59 K/mm3 (0.16-1.47); MONOCYTES PERCENT MAN 14 % (4-13); NEUTROPHILS ABSOLUTE MAN 9.12 K/mm3 (1.96-9.15); SEG NEUTROPHILS PERCENT MAN 62 % (41-73); TOTAL CELLS COUNTED 100
[2018-10-24 10:29] LABS: Albumin, Blood 2.5 g/dL (3.4-5.0); Albumin/Globulin Ratio 0.7 (0.8-1.8); Bilirubin, Total 0.5 mg/dL (0.1-1.0); Bun/Creatinine Ratio 37.3 (12.0-20.0); Calcium, Blood 8.1 mg/dL (8.5-10.1); Creatinine, Blood 1.58 mg/dL (0.60-1.20); Globulin, Blood 3.6 g/dL (2.2-4.0); Potassium, Blood 3.3 mmol/L (3.5-5.5); Total Protein, Blood 6.1 g/dL (6.4-8.2)
[2018-10-24 11:44] LABS: Source, Urine Catheter
[2018-10-24 11:48] LABS: Bilirubin, Urine Neg (Neg); Blood, Urine 1+ (Neg); Glucose Qualitative, Urine Neg (Neg); Ketones, Urine 1+ (Neg); Leukocyte Esterase, Urine 1+ (Neg); Nitrite, Urine Neg (Neg); Protein, Urine 2+ (Neg); Urobilinogen, Urine NORM (Normal)
--- NOTE | 2018-10-24 11:55 | NUR ---
TRANSFER REPORT CALLED TO JESUS IN ICU. PT TRANSPORTED TO ICU IN HIS BED. HE REMAINS ON 15L NON-REBREATHER. SBP REMAINS IN THE 80'S. PT IS DROWSY BUT AWAKENS TO QUESTIONS AND ANSWERES APPROPRIATELY. PT'S MIRNA NOTIFIED OF TRANFER. WILL CONTINUE TO MONITOR.
[2018-10-24 12:06] LABS: Appearance, Urine Clear (Clear); Color, Urine Yellow (P-Yellow)
[2018-10-24 12:09] LABS: Bacteria Many /hpf; Squamous Epithelial Cells Rare /hpf (Few)
--- NOTE | 2018-10-24 12:48 | NUR ---
PT TRANSFERED TO ICU 9 VIA BED AT APPROX 1150. PERSONAL BELONGINGS AND MEDS SENT WITH PATIENT.
[2018-10-24 13:00] LABS: Stool Occult Blood Guaiac 1 Pos (Neg)
--- NOTE | 2018-10-24 13:23 | NUR ---
TRANSFER TO ICU / DR TURNER: REPORT RECEIVED FROM RAMESH Sebastian RN. PT ARRIVED TO ICU-09 AT APPROX 1155. ON ARRIVAL TO UNIT, PT IS DROWSY BUT AWAKE. 15L O2 IN PLACE VIA NRB, O2 SATS 86-91%. LS ARE DIM T/O W/ SLIGHT EXP WHEEZE NOTED IN UPPER LOBES. MONITOR SHOWS ST, HR 110s. HYPOTENSION PERSISTANT, BUT IMPROVED SLIGHTLY, SBP 90s. MIDLINE INCISION WNL, WOUND VAC INTACT/ PATENT. ABD TENDER TO PALPATION IN RLQ, BT ARE BARELY AUDIBLE TO RLQ. NGT TO LIS, PRODUCING MOD AMNTS OF GREEN LIQUID, APPROX 100 ML OUTPUT AT THIS TIME. JONES PATENT/ DRAINING DARK YELLOW URINE. SKIN OVERALL CDI. DR TURNER HAS NOW BEEN CONSULTED. REPEAT CXR COMPLETED. HEPARIN CONSULT PLACED FOR PHARMACY & BASELINE COAGS DRAWN, US OF BLE & BUE NOW BEING COMPLETED. NRB REMOVED & AIRVO PLACED, PT DEBBIE WELL W/ SETTINGS 60% FIO2 & 60L/MIN. O2 SATS 90-95%, AIM TO KEEP SATS AROUND 92% PER DR TURNER R/T HX COPD. PT's , MIRNA, HAS ALSO BEEN UPDATED BY THIS RN. WILL CONTINUE TO MONITOR & UPDATE NEEDED.
[2018-10-24 13:59] LABS: International Normalized Ratio 1.13; Prothrombin Time Results 11.8 Sec (9.7-11.5)
--- NOTE | 2018-10-24 18:29 | NUR ---
SHIFT SUMMARY: NO ACUTE CHANGES SINCE PRIOR UPDATES & ASSUMED CARE. PT REMAINS A&O, PLEASANT & COOPERATIVE. LS ARE DIM T/O, AIRVO SETTINGS NOW 45% FIO2 & 60L/MIN. PT DEBBIE WELL W/ O2 SATS 90-95%. MONITOR SHOWS ST, HR 110-120s. BT REMAIN HYPOACTIVE, ABD TENDER TO PALPATION IN RLQ. NGT TO LIS W/ 500 ML OUT SINCE ASSUMING CARE. WOUND VAC TO MIDLINE ABD IS INTACT/ PATENT. JONES DRAINING FERCHO, CLOUDY URINE. SKIN OVERALL CDI. WILL CONTINUE TO MONITOR & REPORT OFF TO ONCOMING RN.
--- NOTE | 2018-10-24 20:35 | NUR ---
NEW ORDERS; ASSUMED CARE ASSUMED CARE OF PT AT 1900, RECEIVED REPORT FROM JESUS JOHNSON. UPON ENTERING ROOM PT WAS IN FOWLERS POSITION AND CURRENTLLY ON THE AIRVO WITH SETTING AT 60L/MIN AND FIO2 AT 44%, SPO2 OF 95%. PT DENIES ANY SOB, COUGH, NAUSEA, VOMITING, OR PAIN AT THIS TIME. PT'S SBP WAS RUNNING IN THE LOW 90'S AND HR HAS BEEN IN THE 110'S TO HIGH 120'S. PT DENIES ANY CHEST PAIN OR PALPATATIONS AT THIS TIME. WAS CALLED REGARDING PT'S LOW B/P AND ELEVATED HR. LASTEST BP WAS 92/55 W/ HR AT 122 BMP. ORDERED 1L OF LR BOLUS, ORDERD WAS PLACED AND WAITING FOR ORDER TO BE VERIFIED BY PHARMACY. WILL CONTINUE TO MONTIOR FOR ANY CHANGES.
--- NOTE | 2018-10-24 21:01 | NUR ---
UPDATE: LR BOLUS STARTED, NG TUBE CLAMPPED AT THIS TIME. WILL CONTINUE TO ASSESS PT.
--- NOTE | 2018-10-25 00:23 | NUR ---
NEW ORDERS/BP: SPOKE TO REGARDING HYPOTENSION AND POOR URINE OUTPUT. RECEIVED ORDERS TO GIVE 1L OF LR OVER A PERIOD OF TWO HOURS. WILL CONTINUE TO MONITOR PT.
[2018-10-25 03:38] LABS: Hematocrit 21.8 % (37.0-53.0); Mean Corpuscular HGB 27.9 pg (26.0-34.0); Mean Corpuscular HGB Conc 32.1 g/dL (31.5-36.5); Mean Corpuscular Volume 87 fL (80-100); Mean Platelet Volume 11.4 fL (9.1-12.4); Platelet Count 159 K/mm3 (150-400); RDW Coefficient Variation 14.8 % (11.7-14.2); RDW Standard Deviation 47.3 fL (35.1-46.3); Red Blood Cell Count 2.51 M/mm3 (4.30-5.90)
[2018-10-25 03:57] LABS: Albumin, Blood 1.8 g/dL (3.4-5.0); Albumin/Globulin Ratio 0.6 (0.8-1.8); Bilirubin, Total 0.3 mg/dL (0.1-1.0); Bun/Creatinine Ratio 39.1 (12.0-20.0); Calcium, Blood 7.2 mg/dL (8.5-10.1); Creatinine, Blood 1.74 mg/dL (0.60-1.20); Globulin, Blood 3.1 g/dL (2.2-4.0); Potassium, Blood 3.3 mmol/L (3.5-5.5); Total Protein, Blood 4.9 g/dL (6.4-8.2)
--- NOTE | 2018-10-25 09:38 | NUR ---
ASSUMED CARE / DR NAILS: REPORT RECEIVED FROM KYLE Green, RN & MT Enriquez RN. ASSUMED CARE OF THIS PT AT APPROX 0700. ON ASSESSMENT, THE PT IS RESTING QUIETLY. HE AWAKENS EASILY TO VERBAL STIMULI. HE IS A&O, PLEASANT & COOPERATIVE W/ CARE. FIRST UNIT PRBC's INFUSING AT THIS TIME, PT TOLERATING WELL. LS ARE COARSE IN LLL, OTHERWISE DIM. AIRVO IN PLACE W/ SETTINGS 60 L/MIN & 45% FIO2. MONITOR SHOWS SR-ST, HR 90-110s. BP IMPROVING. NGT CLAMPED FROM 0830 TO 0930 FOLLOWING NAC ADMIN PER EMAR. NGT NOW TO LIS AGAIN. PT CONTINUES HAVING HICCUPS BUT STS HE HAS NO NAUSEA. ABD TENDERNESS IMPROVED, PER PT REPORT. WOUND VAC TO MIDLINE INCISION PATENT. PROVIDER AT BEDSIDE TO SEE PT. HE WOULD LIKE A CT PE STUDY TO BE COMPLETED THIS AM. HE ALSO STS HE WOULD LIKE A F/U H&H DRAWN PRIOR TO THE SECOND UNIT OF PRBCs BEING ADMINISTERED TO SEE IF NEEDED. NAC HAS ALSO BEEN D/C'd PER HIS ORDERS. WILL CONTINUE TO MONITOR & UPDATE NEEDED.
[2018-10-25 11:25] LABS: Hematocrit 23.1 % (37.0-53.0); Hemoglobin 7.6 g/dL (13.5-17.5)
--- NOTE | 2018-10-25 11:54 | NUR ---
PATIENT TO CT AND BACK. UPON RETURN, NOTED BRIGHT RED BLOOD MIXED WITH CLEAR DRAINAGE ON PAD. NOTIFIED. DR. NAILS. PROTONIX GTT CALL TO DR. ARNOLD ORDERED. MESSAGE LEFT FOR DR ARNOLD AND HE CALLED AND ADVISED HE HAS HAD RED BLOOD COMING FROM HIS COLON D/T HEPARIN INFUSION. NO NEW ORDERS.
--- NOTE | 2018-10-25 12:57 | NUR ---
REPEAT H/H 7.6/23.1. DR. NAILS ORDERED 1 UNIT PRBC TO BE TRANSFUSED.
--- NOTE | 2018-10-25 13:22 | NUR ---
FAMILY IN AND UPDATED
--- NOTE | 2018-10-25 15:04 | NUR ---
MD VISIT DR. NUNES IN. NO NEW ORDERS
[2018-10-25 15:51] LABS: Hemoglobin 8.5 g/dL (13.5-17.5)
--- NOTE | 2018-10-25 16:04 | NUR ---
DR. NAILS IN
--- NOTE | 2018-10-25 18:32 | NUR ---
SUMMARY O2 TITRATED TO 2L OXYMIZER. 550 CC OUTPUT FROM NGT. 2 UNITS PRBC TODAY AND POTASSIUM REPLACED WITH KCL.
[2018-10-25 20:49] LABS: Hemoglobin 8.5 g/dL (13.5-17.5)
--- NOTE | 2018-10-25 21:37 | NUR ---
ASSUMED CARE OF PT, REPORT RCV'D FROM ALEX SANTOS. PT ALERT AND ORIENTED. PT DENIES PAIN AT THIS TIME AND REQUESTING TO GET UP INTO RECLINER. PT ABLE TO STAND AND PIVOT WITH ASSISTANCE TO SIT UP IN CHAIR. NO DYSPNEA ON EXERTION, INCREASED O2 NEEDS, OR DECREASE IN SATS WITH MOVEMENT. PT SWITCHED FROM OXYMIZER TO NC PER PT REQUEST, CURRENTLY ON 2L NC WITH SATS IN THE MID 90'S. EXP WHEEZE HEARD BILATERAL UPPER LOBES, DIM BASES. JONES PATENT AND DRAINING FERCHO COLORED URINE. MIDLINE INCISION S/P COLON RESECTION. WOUND VAC PATENT, AREA C/D/I. BT HYPOACTIVE X4. NGT-LIS. SEE FULL SHIFT ASSESSMENT.
--- NOTE | 2018-10-25 23:49 | NUR ---
PT CONTINUES TO HAVE INTRACTABLE HICCUPS, PER PT HE HAS HAD HICCUPS FOR THE LAST 8 DAYS. MEDICATED WITH REGLAN AND PT APPEARS TO HAVE DECREASE IN HICCUP FREQUENCY.
[2018-10-26 04:03] LABS: BASOPHILS ABSOLUTE AUTO 0.01 K/mm3 (0.00-0.23); BASOPHILS PERCENT AUTO 0 % (0-2); Hematocrit 23.5 % (37.0-53.0); Hemoglobin 7.9 g/dL (13.5-17.5); LYMPHOCYTES ABSOLUTE AUTO 0.65 K/mm3 (0.84-5.20); LYMPHOCYTES PERCENT AUTO 5 % (21-46); MONOCYTES ABSOLUTE AUTO 0.85 K/mm3 (0.16-1.47); MONOCYTES PERCENT AUTO 6 % (4-13); Mean Corpuscular HGB Conc 33.6 g/dL (31.5-36.5); Mean Corpuscular Volume 86 fL (80-100); Mean Platelet Volume 12.1 fL (9.1-12.4); Platelet Count 177 K/mm3 (150-400); RDW Coefficient Variation 14.6 % (11.7-14.2); RDW Standard Deviation 46.2 fL (35.1-46.3); Red Blood Cell Count 2.72 M/mm3 (4.30-5.90); White Blood Cell Count 13.68 K/mm3 (4.00-11.30)
[2018-10-26 04:04] LABS: EOSINOPHILS ABSOLUTE AUTO 0.09 K/mm3 (0.00-0.68); EOSINOPHILS PERCENT AUTO 1 % (0-6); IMMATURE GRAN ABSOLUTE AUTO 0.18 K/mm3 (0.00-0.10); IMMATURE GRAN PERCENT AUTO 1 % (0-1); NEUTROPHILS PERCENT AUTO 87 % (41-73)
[2018-10-26 04:22] LABS: Anion Gap 5 mmol/L (6-16); Blood Urea Nitrogen 55 mg/dL (8-24); Bun/Creatinine Ratio 51.9 (12.0-20.0); CO2, Blood 26 mmol/L (21-32); Calcium, Blood 7.4 mg/dL (8.5-10.1); Chloride, Blood 110 mmol/L (98-108); Creatinine, Blood 1.06 mg/dL (0.60-1.20); Glomerular Filtration Rate >60 (60-); Glucose, Blood 116 mg/dL (70-99); Magnesium, Blood 2.4 mg/dL (1.6-2.4); Potassium, Blood 3.7 mmol/L (3.5-5.5); Sodium, Blood 141 mmol/L (136-145)
--- NOTE | 2018-10-26 06:04 | NUR ---
SHIFT SUMMARY PT REMAINS ALERT AND ORIENTED. PT'S OXYGEN NEEDS HAVE DECREASED OVERNIGHT AND PT IS CURRENTLY SATTING AT 94% ON ROOM AIR. PT CONTINUES TO DENY PAIN. WOUND VAC PATENT WITH SCANT AMOUNT OF SS OUTPUT NOTED. HR TACHY AND IRREGULAR, NO ACUTE CHANGES. NGT-LIS, MINIMAL AMOUNT OF GREEN OUTPUT. JONES PATENT AND DRAINING FERCHO COLORED URINE, 800 ML OUTPUT. PT'S HICCUPS IMPROVED WITH DOSE OF REGLAN AND SIPS OF WATER. SEE PREVIOUS NOTES FROM THIS SHIFT. WILL REPORT TO DAYSHIFT NURSE.
[2018-10-26 12:05] LABS: Hematocrit 23.6 % (37.0-53.0); Hemoglobin 7.8 g/dL (13.5-17.5)
--- NOTE | 2018-10-26 13:40 | NUR ---
PT A&O, ABLE TO GET OUT OF BED TO COMMODE AND CHAIR WITH MINIMAL ASSISTANCE. lUNG SOUNDS DIMINISHED AT BASES WITH EXPIRATORY WHEEZES. MOIST PRODUCTIVE COUGH, PT IS ABLE TO SUCTION OWN SECRETIONS. JONES D/C'D AND PT IS ABLE TO VOID. PT HAD RED AND BLACK LOOSE BM. PT REPORTED MIXED WITH URINE. PT HAS NG TUBE ATTACHED TO INTERMITTENT SUCTION PUTTING OUT GREEN BILIOUS LOOKING FLUID. MID ABDOMINAL SURGICAL INCISION ATTACHED TO WOUND VAC. DRESSING IS DRY AND INTACT.
--- NOTE | 2018-10-26 16:20 | NUR ---
NG D/C'D, MINIMAL GREEN DRAINAGE. PT UP TO COMMODE. TOLERATED WELL. MIXED BM/URINE, RED/BLACK IN COLOR, WATERY, OUTPUT OF 500ML. MULTIPLE FAMILY MEMEBERS VISITED THROUGHOUT THE DAY. BED BATH OFFERED, PT REFUSED. CONTINUES TO HAVE A PRODUCTIVE MOIST COUGH, ABLE TO SUCTION OWN SECRETIONS.
--- NOTE | 2018-10-26 19:48 | NUR ---
CARE ASSUMPTION PT A&O X4. VSS. PT DENIES PAIN/DISCOMFORT OF ANY KIND. ABD WOUND VAC PATENT AND DRAINING SS FLUID. LUNG SOUNDS DIM W/ EXP WHEEZE. SPO2 > 92% ON RA. PT W/ PRODUCTIVE COUGH, SELF-SUCTIONING THICK LINK SPUTUM. MONITOR SHOWS NSR, HR 80-95. PT VOIDING DARK YELLOW URINE POST JONES CATH REMOVAL. WILL CONTINUE TO MONITOR AND PROVIDE CARE.
[2018-10-26 20:10] LABS: Hematocrit 23.4 % (37.0-53.0); Hemoglobin 7.7 g/dL (13.5-17.5)
--- NOTE | 2018-10-27 02:18 | NUR ---
PT HAVING HICCUPS INTERMITTENTLY WHILE AWAKE SINCE APPROX 2200. PT MEDICATED W/ REGLAN PER EMAR/PT REQUEST.
[2018-10-27 03:45] LABS: BASOPHILS ABSOLUTE AUTO 0.02 K/mm3 (0.00-0.23); BASOPHILS PERCENT AUTO 0 % (0-2); EOSINOPHILS ABSOLUTE AUTO 0.17 K/mm3 (0.00-0.68); EOSINOPHILS PERCENT AUTO 1 % (0-6); Hematocrit 23.2 % (37.0-53.0); Hemoglobin 7.6 g/dL (13.5-17.5); IMMATURE GRAN ABSOLUTE AUTO 0.63 K/mm3 (0.00-0.10); IMMATURE GRAN PERCENT AUTO 4 % (0-1); LYMPHOCYTES ABSOLUTE AUTO 0.86 K/mm3 (0.84-5.20); LYMPHOCYTES PERCENT AUTO 6 % (21-46); MONOCYTES ABSOLUTE AUTO 0.95 K/mm3 (0.16-1.47); MONOCYTES PERCENT AUTO 6 % (4-13); Mean Corpuscular HGB 28.7 pg (26.0-34.0); Mean Corpuscular HGB Conc 32.8 g/dL (31.5-36.5); Mean Corpuscular Volume 88 fL (80-100); Mean Platelet Volume 12.5 fL (9.1-12.4); NEUTROPHILS ABSOLUTE AUTO 12.62 K/mm3 (1.96-9.15); NEUTROPHILS PERCENT AUTO 83 % (41-73); Platelet Count 200 K/mm3 (150-400); RDW Coefficient Variation 14.7 % (11.7-14.2); Red Blood Cell Count 2.65 M/mm3 (4.30-5.90); White Blood Cell Count 15.25 K/mm3 (4.00-11.30)
[2018-10-27 04:01] LABS: Anion Gap 5 mmol/L (6-16); Blood Urea Nitrogen 38 mg/dL (8-24); Bun/Creatinine Ratio 42.6 (12.0-20.0); CO2, Blood 24 mmol/L (21-32); Calcium, Blood 7.7 mg/dL (8.5-10.1); Chloride, Blood 112 mmol/L (98-108); Creatinine, Blood 0.89 mg/dL (0.60-1.20); Glomerular Filtration Rate >60 (60-); Glucose, Blood 106 mg/dL (70-99); Potassium, Blood 4.2 mmol/L (3.5-5.5); Sodium, Blood 141 mmol/L (136-145)
--- NOTE | 2018-10-27 04:25 | NUR ---
PT UP TO BATHROOM W/ PASSING OF MEDIUM, BROWN/RED, LOOSE STOOL. PT HAVING EPISODES OF CONTINENCE AND INCONTINENCE OF BLADDER AND BOWEL.
--- NOTE | 2018-10-27 05:45 | NUR ---
SHIFT SUMMARY PT A&O X4. VSS. LUNG SOUNDS DIM W/ EXP WHEEZE. SPO2 > 92% ON RA OR 2L NC AT NIGHT PER PT'S HOME ROUTINE. PT HICCUPING INTERMITTENTLY T/O SHIFT. ABD MIDLINE WOUND VAC PATENT. SS DRAINAGE NOTED IN CANISTER. PT DENIES ABD PAIN/DISCOMFORT. PT UP TO BATHROOM W/ 1 LOOSE, BROWN/RED BM AND 1 INCONTINENT BROWN/RED SMEAR IN ATTENDS THIS SHIFT. PT NPO. CLINIMIX INFUSING PER ORDERS. PT IN BED SLEEPING W/ CALL LIGHT IN REACH. WILL CONTINUE TO MONITOR AND PROVIDE CARE UNTIL REPORT OFF TO DAY SHIFT RN.
--- NOTE | 2018-10-27 06:55 | NUR ---
REPORT AND BEDSIDE ROUNDING WITH FARIBA JOHNSON. ASSUMED PT CARE. PT AXOX4. PT HAS MULT IVS IN PLACE WITH MEDS INF. CALL LIGHT IN REACH. SITS TO SIDE OF BED TO USE URINAL. COARSE LUNG SOUNDS WITH MOIST COUGH NOTED. ABD SOFT AND NON TENDER. PT DENIES NAUSEA. MIDLINE PROVENA DRAIN SECURE, SCANT DRAINAGE NOTED TO CHAMBER.
--- NOTE | 2018-10-27 07:21 | NUR ---
ABX STARTED PER EMAR. PT FALLS ASLEEP OFF AND ON. DENIES IMMEDIATE NEEDS.
--- NOTE | 2018-10-27 08:31 | NUR ---
FLAGYL STARTED PER EMAR. PT WATCHING TV. AWAITING PROVIDER EVAL.
--- NOTE | 2018-10-27 09:09 | NUR ---
DR NAILS AT BEDSIDE. PLAN TO CONSULT WITH SURGEON TO GET PT DIET ADVANCED TO CLEARS. PLAN TO MOVE PT TO PCU.
--- NOTE | 2018-10-27 09:25 | NUR ---
FACING MACHINE OPERATOR AWARE OF NEED FOR ROOM ASSIGNMENT IN PCU.
--- NOTE | 2018-10-27 09:30 | NUR ---
APPLE JUICE PROVIDED TO PT. SITTING UP IN BED, SELF SUCTIONS NEEDED. HICCUPS CONTINUE.
--- NOTE | 2018-10-27 10:26 | NUR ---
FAMILY TO ROOM. UPDATED ON PT MORNING AND PENDING TX TO PCU. PT DEBBIE THE APPLE JUICE WELL. DENIES PAIN/NAUSEA.
--- NOTE | 2018-10-27 10:52 | NUR ---
TESTER PRINTED CIRCUIT BOARDS NOTIFIED OF NEED FOR ROOM ASSIGNMENT AGAIN.
--- NOTE | 2018-10-27 11:03 | NUR ---
ROOM ASSIGNMENT RECEIVED. PCU 11.
--- NOTE | 2018-10-27 11:33 | NUR ---
ROOM SWITCHED TO PCU 8. NURSE AWARE OF ADMIT AND WILL CALL FOR REPORT.
--- NOTE | 2018-10-27 12:12 | NUR ---
LUNCH TRAY DELIVERED. REPORT TO DRIVING INSTRUCTOR.
--- NOTE | 2018-10-27 12:28 | NUR ---
PT TO PCU VIA . ALL BELONGINGS SENT WITH PT.
--- NOTE | 2018-10-27 14:12 | NUR ---
icu 5 to pcu 8 Pt transfered to pcu 8 from icu via w/c accompanied by retail special event associate. Pt awake and alert. Tolerated well. Continue pot.
[2018-10-27 19:16] LABS: Hematocrit 24.5 % (37.0-53.0)
--- NOTE | 2018-10-28 07:24 | NUR ---
SUMMARY NO ACUTE CHANGES NOTED THROUGH THE NIGHT. PT IS TOLERATING PO INTAKE. PASSING FLATUS. STAND BY ASSIST IN THE ROOM. VSS, ROOM AIR. CLINIMIX INFUSING PER EMAR. REPORT GIVEN TO OVI JOHNSON. CALL LIGHT IN REACH.
--- NOTE | 2018-10-28 15:48 | NUR ---
DR ARNOLD TO SEE PT. REPORTS TAKING PRAVENA OFF. REPORTS MAY EAT REGULAR FOOD.
--- NOTE | 2018-10-28 19:23 | NUR ---
SHIFT SUMMARY PT TOLERATING DIET, PT WAS ADVANCED THIS EVENING PER DR ARNOLD. PT REPORTS PASSING GAS AND HAVING BM'S. PT HAS HICCUPPS OFF AND ON. PT BEEN ASSISTED WITH ADL'S PRN. PT AMBULATED WITH ASSIST. PT USING CALL LIGHT APPR. PT WORKED WITH THERAPY EARLIER TODAY.
--- NOTE | 2018-10-29 06:00 | NUR ---
SHIFT SUMMARY. ASSUMED CARE AT 1900. WALKING IN HALLS W/ WALKER AND STAFF STAND BY. DENIES ANY DISCOMFORT . REFUSED FOOD LAST NOC SIPS ON H2O AND DENIES NAUSEA/ STAPLED INCISION INTACT WNL / A LITTLE BRUISING FREQUENT HICCOUGHS. PER HX REPORTED. MOIST COUGHING. BUT LUNGS CLEAR W/ COUGH. ST PACS. AVERAGE 104. SLEPT POORLY . AND ENC TO COUGH AND DEEP BREATHE.THIS PROMOTES A COUGH. NO PRODUCTIVE. GREENISH YELLOW LIQUID STOOL MODERATE AMT. REPORTED.
--- NOTE | 2018-10-29 08:00 | NUR ---
Recieved report from Ellen JOHNSON. Patient awake in bed watching TV and expressing wanting to go home. He is on RA and sats mid to upper 90%. Staple site C/D/I. patient denies any current pain and need for intervention. He is starting breakfast and tolerating well.
--- NOTE | 2018-10-29 11:30 | NUR ---
Dr Rendon by and made med without tele. He continues to express wanting to go home. He remains on Ra and sats upper 90%'s. He has taken several walks with assist of PCT's. VSS See flowsheet. called to check to see if patient is going home. Have not seen surgery rounding today. Staple site stable.
--- NOTE | 2018-10-29 16:20 | NUR ---
Patient is med status and is moving to 226 and awaiting report. All personal belonging backed up and ready to go.
--- NOTE | 2018-10-29 18:35 | NUR ---
TRANSFER: REPORT RECIEVED FROM GRAPHIC MANAGER. PT TO UNIT AT ABOUT 1645. PT IS IN NO VISABLE DISTRESS, INSTUCTED TO USE CALL LIGHT. A/O, NO SAFETY CONCERNS AT THIS TIME, WILL REPORT TO NOC RN
--- NOTE | 2018-10-29 21:37 | NUR ---
2137: 2L O2 VIA NC APPLIED TO PT, PER HOME ROUTINE. PT A&O X4 AND MOVES WELL IN BED. CONTINUED MODERATE NAUSEA POST VOMITTING WITH APPROXIMATELY 200ML EMESIS; TREATED WITH 4MG ZOFRAN PRN.
[2018-10-30 04:25] LABS: Hematocrit 23.7 % (37.0-53.0); Hemoglobin 7.6 g/dL (13.5-17.5); Mean Corpuscular HGB 28.1 pg (26.0-34.0); Mean Corpuscular HGB Conc 32.1 g/dL (31.5-36.5); Mean Corpuscular Volume 88 fL (80-100); Mean Platelet Volume 12.1 fL (9.1-12.4); Platelet Count 282 K/mm3 (150-400); RDW Coefficient Variation 15.3 % (11.7-14.2); RDW Standard Deviation 48.8 fL (35.1-46.3); White Blood Cell Count 12.74 K/mm3 (4.00-11.30)
[2018-10-30 04:44] LABS: Anion Gap 7 mmol/L (6-16); Blood Urea Nitrogen 27 mg/dL (8-24); Bun/Creatinine Ratio 30.8 (12.0-20.0); CO2, Blood 21 mmol/L (21-32); Calcium, Blood 7.6 mg/dL (8.5-10.1); Chloride, Blood 109 mmol/L (98-108); Creatinine, Blood 0.88 mg/dL (0.60-1.20); Glomerular Filtration Rate >60 (60-); Glucose, Blood 105 mg/dL (70-99); Potassium, Blood 3.7 mmol/L (3.5-5.5); Sodium, Blood 137 mmol/L (136-145)
[2018-10-30 04:45] LABS: BAND PERCENT MAN 3 % (0-8); BASOPHILS PERCENT MAN 0 % (0-2); EOSINOPHILS ABSOLUTE MAN 0.12 K/mm3 (0.00-0.68); EOSINOPHILS PERCENT MAN 1 % (0-6); LYMPHOCYTES ABSOLUTE MAN 0.89 K/mm3 (0.84-5.20); LYMPHOCYTES PERCENT MAN 7 % (21-46); METAMYELOCYTE ABSOLUTE MAN 0.38 K/mm3 (0.00-0.00); METAMYELOCYTE PERCENT MAN 3 % (0-0); MONOCYTES ABSOLUTE MAN 1.01 K/mm3 (0.16-1.47); MONOCYTES PERCENT MAN 8 % (4-13); MYELOCYTE ABSOLUTE MAN 0.38 K/mm3 (0.00-0.00); MYELOCYTE PERCENT MAN 3 % (0-0); NEUTROPHILS ABSOLUTE MAN 9.93 K/mm3 (1.96-9.15); SEG NEUTROPHILS PERCENT MAN 75 % (41-73); TOTAL CELLS COUNTED 100
--- NOTE | 2018-10-30 07:13 | NUR ---
SUMMARY: POD [address] ARNOLD AND JANA. VSS, AFEBRILE, TOLERATING SMALL PORTIONS REG DIET, PASSING GAS AND VOIDING WELL. DENIES PAIN AND PT HAD 1 EPISODE OF N/V RESOLVED WITH IV ZOFRAN THAT PT ATTRIBUTED TO EATING TOO MUCH DINNES. PT MIDLINE INCISION METAL PAINTER WITH YINKA INTACT. PT LABS INMPROVED THIS MORNING. ANTICIPATE CONTINUE IV ANTIBIOTICS AND POSSIBLE DC HOME LATER THIS DAY.
--- NOTE | 2018-10-30 07:18 | NUR ---
RECVD REPORT FROM PREVIOUS SHIFT RN SUMMER, PT SLEEPING IN BED, TV ON, BED IN LOWEST POSITION, BED RAILS UP X 2, CALL LIGHT WITHIN REACH
--- NOTE | 2018-10-30 10:00 | NUR ---
dr lemus rounding on pt
--- NOTE | 2018-10-30 11:20 | NUR ---
kari store planner in with pt and family, home health ordered, RN rosmery, store planner working on case as well
[2018-10-30] MEDS ORDERED: HYDR1TAB94 PO (13:27)
--- NOTE | 2018-10-30 13:30 | NUR ---
pt in room with daughter, PRBC transfusing, denies SOB, chills/fever, itching, vss
--- NOTE | 2018-10-30 15:27 | NUR ---
one unit PRBC transfused WNL, VSS, Lungs sounds clear. peripheral power glide in [place] removed WNL. pt's daughter transported pt's belongings to awaiting vehicle. pt transported via wheelchair by nursing staff kulwinder to awaiting vehicle. [facility] care management team provided discharge teaching and Home Health appointment set up. pt states understanding of instructions.
== END 2018-10-30 15:15 | disposition home or self-care (01) | DRG 329 ==
LOC: ER 18:58 → MEDS 23:17 → ICUW 23:17 → PCU 23:17 → MEDS 10-17 00:57 → SURS 10-18 18:20 → PCU 10-18 20:53 → SURS 10-19 14:31 → ICUW 10-24 11:47 → ICUE 10-25 10:50 → PCU 10-27 13:32 → SURS 10-29 17:52
PROVIDERS: Family Medicine; Hospitalist; Internal Medicine; Internal Medicine Critical Care Medicine; Internal Medicine Gastroenterology; Pharmacist; Physician Assistant; Surgery; ADMIT Family Medicine
PROC: 0DTH0ZZ Resection of Cecum, Open Approach (ICD-10-PCS; principal; 2018-10-18 14:30)
PROC: 30233N1 Transfusion of Nonautologous Red Blood Cells into Peripheral Vein, Percutaneous Approach (ICD-10-PCS; 2018-10-24)
DX: K55.9 Vascular disorder of intestine, unspecified (principal); A41.9 Sepsis, unspecified organism; J18.1 Lobar pneumonia, unspecified organism; J96.21 Acute and chronic respiratory failure with hypoxia; R65.20 Severe sepsis without septic shock; K91.89 Other postprocedural complications and disorders of digestive system; D62 Acute posthemorrhagic anemia; E44.0 Moderate protein-calorie malnutrition; I25.10 Atherosclerotic heart disease of native coronary artery without angina pectoris; J44.9 Chronic obstructive pulmonary disease, unspecified; Z95.1 Presence of aortocoronary bypass graft; I25.5 Ischemic cardiomyopathy; R91.1 Solitary pulmonary nodule; D64.9 Anemia, unspecified; Y95 Nosocomial condition
CPT/HCPCS: 0097U; 36415; 36430; 36600; 51702; 71045; 71046; 71260; 74022; 74174; 74177; 80048; 80053; 80069; 80076; 81001; 81003; 82150; 82271; 82272; 82274; 82728; 82803; 83540; 83550; 83605; 83615; 83690; 83735; 83880; 84100; 85014; 85018; 85025; 85027; 85379; 85610; 85730; 86140; 86850; 86900; 86901; 86923; 87040; 87086; 88307; 93308; 93321; 93970; 94640; 94760; 96361; 96365-59; 96375; 97116; 97162; 97166; 97530; 97535; 99285-25; A9270; A9270-GY; C1751; C9113; J0692; J1100; J1170; J1644; J1650; J1885; J2370; J2405; J2543; J2550; J2704; J2710; J2765; J3010; J3480; J7030; J7050; J7120; P9016; Q9967

== ENCOUNTER 2019-06-23 07:13 | Emergency (ER) | payer MEDICARE ==
[~2019-06-23] VITALS: Ht 177.8 cm; Wt 77.1 kg
[~2019-06-23 07:13] MED LIST changes: +ASPI325EC PO; +ATOR10 PO; +HYDR1TAB94 PO; +METO50 PO
[2019-06-23] MEDS ORDERED: ATORVASTATIN CA20 MG PO (07:37)
[2019-06-23] MEDS ORDERED: Ventolin/Prove6.7 GM (07:38)
[2019-06-23] MEDS ORDERED: METOPROLOL SUCCINATE (07:38)
[2019-06-23] MEDS ORDERED: Symbicort 16010.2 GM INH (07:38)
[2019-06-23] MEDS ORDERED: OSTERA TABLET1 EACH PO (07:39)
[2019-06-23] MEDS ORDERED: OMEP20ER (07:39)
[2019-06-23 08:09] LABS: BASOPHILS PERCENT AUTO 1 % (0-2); EOSINOPHILS ABSOLUTE AUTO 1.01 K/mm3 (0.00-0.68); EOSINOPHILS PERCENT AUTO 14 % (0-6); Hematocrit 38.7 % (37.0-53.0); Hemoglobin 12.2 g/dL (13.5-17.5); IMMATURE GRAN ABSOLUTE AUTO 0.03 K/mm3 (0.00-0.10); IMMATURE GRAN PERCENT AUTO 0 % (0-1); LYMPHOCYTES ABSOLUTE AUTO 0.95 K/mm3 (0.84-5.20); LYMPHOCYTES PERCENT AUTO 14 % (21-46); MONOCYTES ABSOLUTE AUTO 0.72 K/mm3 (0.16-1.47); MONOCYTES PERCENT AUTO 10 % (4-13); Mean Corpuscular HGB 26.9 pg (26.0-34.0); Mean Corpuscular HGB Conc 31.5 g/dL (31.5-36.5); Mean Corpuscular Volume 85 fL (80-100); Mean Platelet Volume 11.2 fL (9.1-12.4); NEUTROPHILS ABSOLUTE AUTO 4.24 K/mm3 (1.96-9.15); NEUTROPHILS PERCENT AUTO 60 % (41-73); Platelet Count 262 K/mm3 (150-400); RDW Coefficient Variation 15.9 % (11.7-14.2); RDW Standard Deviation 50.1 fL (35.1-46.3); Red Blood Cell Count 4.54 M/mm3 (4.30-5.90); White Blood Cell Count 7.05 K/mm3 (4.00-11.30)
[2019-06-23 08:40] LABS: Alanine Aminotransfer (ALT/SGP 25 U/L (12-78); Albumin, Blood 3.7 g/dL (3.4-5.0); Albumin/Globulin Ratio 0.9 (0.8-1.8); Alk Phos 131 U/L (50-136); Anion Gap 7 mmol/L (6-16); Aspartate Aminotrans (AST/SGOT 27 U/L (12-37); Bilirubin, Total 0.4 mg/dL (0.1-1.0); Blood Urea Nitrogen 18 mg/dL (8-24); Bun/Creatinine Ratio 21.3 (12.0-20.0); CO2, Blood 27 mmol/L (21-32); Calcium, Blood 8.9 mg/dL (8.5-10.1); Chloride, Blood 102 mmol/L (98-108); Creatinine, Blood 0.84 mg/dL (0.60-1.20); Globulin, Blood 4.2 g/dL (2.2-4.0); Glomerular Filtration Rate >60 (60-); Glucose, Blood 100 mg/dL (70-99); Potassium, Blood 3.6 mmol/L (3.5-5.5); Sodium, Blood 136 mmol/L (136-145); Total Protein, Blood 7.9 g/dL (6.4-8.2); Troponin I <0.015 ng/mL (0.000-0.040)
[2019-06-23] MEDS ORDERED: ALBU2.5V5 INH (09:09)
[2019-06-23] MEDS ORDERED: Prednisone20 MG PO (09:09)
== END 2019-06-23 09:32 | disposition home or self-care (01) ==
LOC: ER 07:13
PROVIDERS: Emergency Medicine
DX: J44.1 Chronic obstructive pulmonary disease with (acute) exacerbation (principal); I10 Essential (primary) hypertension; I25.10 Atherosclerotic heart disease of native coronary artery without angina pectoris; E78.5 Hyperlipidemia, unspecified; Z88.1 Allergy status to other antibiotic agents; Z79.899 Other long term (current) drug therapy; Z79.02 Long term (current) use of antithrombotics/antiplatelets; Z79.82 Long term (current) use of aspirin; Z87.891 Personal history of nicotine dependence; Z20.828 Contact with and (suspected) exposure to other viral communicable diseases
CPT/HCPCS: 36415; 71045; 80053; 83880; 84145; 84484; 85025; 86140; 93005; 93010; 94640; 99285-25; J7512; U0003

== ENCOUNTER → 2019-07-29 | Outpatient (CLI) | payer MEDICARE, OTHER ==
[~2019-07-29] MED LIST changes: +ALBU2.5V5 INH; +ATOR20 PO; +ATORVASTATIN CA20 MG PO; +Aspirin EC81 MG PO; +METO50ER PO; +METOPROLOL SUCCINATE; +OMEP20ER; +OMEP20ER PO; +OSTERA TABLET1 EACH PO; +PROAIR RESPICL90 MCG INH; +Prednisone20 MG PO; +SYMBICORT 160-4.6 GM INH; +Symbicort 16010.2 GM INH; +VITAMIN D325 MC2 PO; +Ventolin/Prove6.7 GM
[2019-07-29 13:18] LABS: BASOPHILS ABSOLUTE AUTO 0.07 K/mm3 (0.00-0.23); BASOPHILS PERCENT AUTO 1 % (0-2); EOSINOPHILS ABSOLUTE AUTO 0.68 K/mm3 (0.00-0.68); EOSINOPHILS PERCENT AUTO 10 % (0-6); Hematocrit 36.8 % (37.0-53.0); IMMATURE GRAN ABSOLUTE AUTO 0.03 K/mm3 (0.00-0.10); IMMATURE GRAN PERCENT AUTO 1 % (0-1); LYMPHOCYTES ABSOLUTE AUTO 0.92 K/mm3 (0.84-5.20); LYMPHOCYTES PERCENT AUTO 14 % (21-46); MONOCYTES ABSOLUTE AUTO 0.77 K/mm3 (0.16-1.47); MONOCYTES PERCENT AUTO 12 % (4-13); Mean Corpuscular HGB 27.6 pg (26.0-34.0); Mean Corpuscular HGB Conc 32.6 g/dL (31.5-36.5); Mean Corpuscular Volume 85 fL (80-100); Mean Platelet Volume 11.4 fL (9.1-12.4); NEUTROPHILS ABSOLUTE AUTO 4.05 K/mm3 (1.96-9.15); NEUTROPHILS PERCENT AUTO 62 % (41-73); Platelet Count 233 K/mm3 (150-400); RDW Coefficient Variation 15.7 % (11.7-14.2); RDW Standard Deviation 47.8 fL (35.1-46.3); Red Blood Cell Count 4.35 M/mm3 (4.30-5.90); White Blood Cell Count 6.52 K/mm3 (4.00-11.30)
[2019-07-29 13:23] LABS: Bun/Creatinine Ratio 17.6 (12.0-20.0); Calcium, Blood 9.1 mg/dL (8.5-10.1); Creatinine, Blood 1.36 mg/dL (0.60-1.20); Potassium, Blood 4.6 mmol/L (3.5-5.5)
== END | disposition home or self-care (01) ==
LOC: LAB SHORT 13:14 → LAB EV 13:14
PROVIDERS: Physician Assistant Medical
DX: R06.00 Dyspnea, unspecified (principal)
CPT/HCPCS: 80048; 85025; 85379